=== PATIENT | female | born 1955 | race Caucasian/White ===

== ENCOUNTER 2018-02-01 11:56 | Day surgery (SDC) | payer MEDICAID ==
[2018-01-27 15:35] LABS: BASOPHILS % (AUTO) 0.3 % (0-1); EOSINOPHILS # (AUTO) 0.2 X10'3 (0-0.9); EOSINOPHILS % (AUTO) 2.2 % (0-6); HEMATOCRIT 37.7 % (35.0-45.0); HEMOGLOBIN 13.1 g/dl (12.0-16.0); LYMPHOCYTES # (AUTO) 1.6 X10'3 (1.1-4.8); LYMPHOCYTES % (AUTO) 22.1 % (21-51); MEAN CORPUSCULAR HEMOGLOBIN 32.2 PG (27.0-31.0); MEAN CORPUSCULAR HGB CONC 34.7 % (33.0-36.5); MEAN CORPUSCULAR VOLUME 92.7 FL (78-98); MEAN PLATELET VOLUME 8.4 FL (7.4-10.4); MONOCYTES # (AUTO) 0.6 X10'3 (0-0.9); MONOCYTES % (AUTO) 7.5 % (2-12); NEUTROPHILS # (AUTO) 5.1 X10'3 (1.8-7.7); NEUTROPHILS % (AUTO) 67.9 % (42-75); PLATELET COUNT 207 X10'3 (140-440); RED BLOOD COUNT 4.06 X10'6 (4.20-5.60); RED CELL DISTRIBUTION WIDTH 12.9 % (11.5-14.5); WHITE BLOOD COUNT 7.4 X10'3 (4.5-11.0)
[2018-01-27 15:46] LABS: PARTIAL THROMBOPLASTIN TIME 27 SECONDS (22-32); PROTHROMBIN TIME 9.9 SECONDS (9.0-12.0)
[2018-01-27 15:48] LABS: ALBUMIN 3.6 G/DL (3.4-5.0); ANION GAP 9 (8-16); BLOOD UREA NITROGEN 21 MG/DL (7-18); BUN/CREATININE RATIO 21.2 (6.6-38.0); CALCIUM 8.7 MG/DL (8.5-10.1); CHLORIDE 108 MMOL/L (99-107); CREATININE 0.99 MG/DL (0.40-0.90); GLUCOSE 96 MG/DL (70-104); POTASSIUM 3.8 MMOL/L (3.5-5.1); SODIUM 145 MMOL/L (135-145); TOTAL CARBON DIOXIDE 28.2 MMOL/L (24-32); eGFR 57 ML/MIN
[~2018-02-01] VITALS: Ht 154.9 cm; Wt 70.6 kg
[2018-02-01] VITALS (11 sets, daily range): BP systolic 108–152; BP diastolic 66–95
[2018-02-01] MEDS ORDERED: LIDOcaine 1% (10mg/ml) 2ml vial ONE (12:16)
[2018-02-01] MEDS ORDERED: LORazepam 0.5 MG tablet PO ONE (12:20)
[2018-02-01] MEDS ORDERED: diphenhydrAMINE 25mg capsule PO ONE (12:20)
[2018-02-01] MEDS ORDERED: normal saline 1000ml 1,000 ML IV SCH (12:20)
[2018-02-01] MEDS ORDERED: IBUP200C74 PO (12:33)
[2018-02-01] MEDS ORDERED: ATOR20TA66 PO (12:33)
[2018-02-01] MEDS ORDERED: AMLO5TAB PO (12:33)
[2018-02-01] MEDS ORDERED: LEVO75TA PO (12:33)
[2018-02-01] MEDS ORDERED: ASPI81TA52 PO (12:33)
[2018-02-01] MEDS ORDERED: fentaNYL/PF 50MCG/1 ML 2ML syringe ONE (14:29)
[2018-02-01] MEDS ORDERED: midazolam 2 mg/2 ml injection ONE (14:30)
[2018-02-01] MEDS ORDERED: LIDOcaine 1%/PF (10mg/ml) 5ml vial ONE ×2 (14:30→14:31)
[2018-02-01] MEDS ORDERED: iohexol 350MG/ML 100ml bottle IV ONE (14:30)
[2018-02-01] MEDS ORDERED: iohexol 350 MG/ML 50ML vial IV ONE (15:20)
[2018-02-01] MEDS ORDERED: proCHLORperazine 10 MG/2 ml inj IV PRN (18:55)
[2018-02-01] MEDS ORDERED: HYDROcodone/acetaminophen 10/325mg tab PO PRN (18:55)
[2018-02-01] MEDS ORDERED: ondansetron/PF 4mg/2ml inj IV PRN (18:55)
[2018-02-01] MEDS ORDERED: OXAZEpam 15mg capsule PO PRN (18:55)
[2018-02-01] MEDS ORDERED: HYDROcodone/acetaminophen 5mg/325mg tablet PO PRN (18:55)
[2018-02-01] MEDS ORDERED: nitroGLYCERIN 0.4mg SUBLingual tab SL PRN (19:00)
== END 2018-02-01 20:00 | disposition home or self-care (01) ==
LOC: SSTAY O 11:56
PROVIDERS: ATTEND Internal Medicine Interventional Cardiology
DX: I25.110 Atherosclerotic heart disease of native coronary artery with unstable angina pectoris (principal); I10 Essential (primary) hypertension; E03.9 Hypothyroidism, unspecified; B19.20 Unspecified viral hepatitis C without hepatic coma; Z79.82 Long term (current) use of aspirin; Z79.1 Long term (current) use of non-steroidal anti-inflammatories (NSAID); Z95.1 Presence of aortocoronary bypass graft; Z72.89 Other problems related to lifestyle; Z98.890 Other specified postprocedural states; Z79.899 Other long term (current) drug therapy
CPT/HCPCS: 36415; 80048; 85025; 85610; 85730; 93005; 93458; 99152; A6257; C1769; J1644; J2001; J2250; J3010; J3490; J7030; Q0163; Q9967; A4620

== ENCOUNTER 2018-03-03 05:32 | Inpatient (IN) | payer MEDICAID ==
[2018-03-01 14:46] LABS: ABG BASE EXCESS 0.7 mmol/L (-2.0-3.0); ABG HCO3 24.7 mmol/L (22.0-26.0); ABG OXYGEN SATURATION 96.4 % (95-98); ABG PCO2 (T) 37.6 mmHg (32.0-45.0); ABG PH (T) 7.436 (7.350-7.450); ABG PO2 (T) 83.2 mmHg (83-108); ALLEN'S TEST Positive; FCOHb 0.5 % (0.5-1.5); FMetHb 0.1 % (0.3-1.12); FO2Hb 95.8 % (94-100); TOTAL HEMOGLOBIN 13.2 G/dl (12.0-16.0)
[2018-03-01 15:09] LABS: BASOPHILS % (AUTO) 0.4 % (0-1); EOSINOPHILS # (AUTO) 0.1 X10'3 (0-0.9); EOSINOPHILS % (AUTO) 2.3 % (0-6); LYMPHOCYTES # (AUTO) 1.7 X10'3 (1.1-4.8); LYMPHOCYTES % (AUTO) 31.8 % (21-51); MEAN CORPUSCULAR HEMOGLOBIN 31.5 PG (27.0-31.0); MEAN CORPUSCULAR HGB CONC 33.9 % (33.0-36.5); MEAN CORPUSCULAR VOLUME 92.9 FL (78-98); MEAN PLATELET VOLUME 8.9 FL (7.4-10.4); MONOCYTES # (AUTO) 0.5 X10'3 (0-0.9); MONOCYTES % (AUTO) 8.5 % (2-12); NEUTROPHILS # (AUTO) 3.1 X10'3 (1.8-7.7); PRE OP HEMATOCRIT 38.2 % (35.0-45.0); PRE OP PLATELET COUNT 178 X10'3 (140-440); RED BLOOD COUNT 4.11 X10'6 (4.20-5.60); RED CELL DISTRIBUTION WIDTH 13.2 % (11.5-14.5)
[2018-03-01 15:19] LABS: CLARITY,URINE CLEAR (Clear); COLOR,URINE STRAW (Yellow); GLUCOSE, URINE NEGATIVE (Neg); KETONES,URINE NEGATIVE (Neg); LEUKOCYTE ESTERASE ,URINE NEGATIVE (Neg); NITRITES, URINE NEGATIVE (Neg); OCCULT BLOOD,URINE SMALL (Neg); PROTEIN,URINE NEGATIVE (Neg); UA COLLECTION TYPE CLN CATCH MIDSTREAM; UROBILINOGEN,URINE 0.2 E.U/dL (0.2-1.0)
[2018-03-01 15:19] LABS: PRE OP INR 0.9 INR; PRE OP PROTIME 9.8 SECONDS (9.0-12.0)
[2018-03-01 15:27] LABS: BACTERIA,URINE FEW /HPF (Neg); RBC,URINE 0-2 /HPF (0-2); SQUAMOUS EPITHELIAL CELL,UR FEW /LPF (FEW); WBC,URINE 0-4 /HPF (0-4)
[2018-03-01 15:33] LABS: ALBUMIN 3.7 G/DL (3.4-5.0); ALBUMIN/GLOBULIN RATIO 1.1 (1.1-1.5); ALKALINE PHOSPHATASE 108 IU/L (46-116); BLOOD UREA NITROGEN 16 MG/DL (7-18); CALCIUM 8.8 MG/DL (8.5-10.1); CHLORIDE 106 MMOL/L (99-107); PRE OP ALT 38 U/L (30-65); PRE OP ANION GAP 8 (8-16); PRE OP AST 25 U/L (10-37); PRE OP BILIRUB, TOTAL 0.4 MG/DL (0.0-1.0); PRE OP GLUCOSE 127 MG/DL (70-104); PRE OP POTASSIUM 4.6 MMOL/L (3.4-5.1); PRE OP SODIUM 144 MMOL/L (135-145); TOTAL CARBON DIOXIDE 29.8 MMOL/L (24-32); TOTAL PROTEIN 7.2 G/DL (6.4-8.2); eGFR 56 ML/MIN
[2018-03-01 15:39] LABS: HEMOGLOBIN A1C 5.6 % (4.5-6.2)
[2018-03-03] VITALS (24 sets, daily range): BP systolic 92–148; BP diastolic 49–86
[~2018-03-03] VITALS: Ht 154.9 cm; Wt 70.1 kg
[~2018-03-03 05:32] MED LIST: AMLO5TAB PO; ASPI81TA52 PO; ATOR20TA66 PO; BISO1TAB4 PO; CETI-102 PO; Cefazolin 2GM/100ML NS IVPB IV ONE; IBUP200C74 PO; LEVO75TA PO; LORazepam 2 mg/ml vial IV PRN; NITR0.4T51 SL; TRAZ-143 PO; UBID100C16 PO; VANCOMYCIN INJ 1000 MG in NORMAL SALINE 250ml IV.SOLN IV ONE; dextrose 50%-water 50ml dispensing syringe IV PRN; famotidine 20mg tablet PO ONE; insulin Lispro (HumaLOG) vial - multi-dose SQ SCH; ringers solution, lacted 1,000 ML IV SCH
[2018-03-03] MEDS ORDERED: LIDOcaine 1% (10mg/ml) 2ml vial ONE (05:57)
[2018-03-03] MEDS ORDERED: mupirocin 2% nasal ointment 1gm UD NS ONE (06:10)
[2018-03-03] MEDS ORDERED: papaverine 30 mg/ml 2ml inj. IA ONE (06:49)
[2018-03-03] MEDS ORDERED: SUFENTANIL CITRATE 50 MCG/ML 2ml ampule IV ONE (06:50)
[2018-03-03] MEDS ORDERED: MIDAZolam 1mg/ml 10ml vial ONE (06:50)
[2018-03-03] MEDS ORDERED: sevoflurane 250ml liquid IH ONE (06:55)
[2018-03-03] MEDS ORDERED: DOPamine/D5W 400mg/250ml bag IV ONE (06:55)
[2018-03-03] MEDS ORDERED: protamine sulf. 10mg/ml inj. IV ONE (06:55)
[2018-03-03] MEDS ORDERED: nitroGLYCERIN in D5W 50mg/250ml (Tridil) infusion IV ONE (06:55)
[2018-03-03 07:40] LABS: ABG BASE EXCESS -1.5 mmol/L (-2.0-3.0); ABG HCO3 22.6 mmol/L (22.0-26.0); ABG OXYGEN SATURATION 99.5 % (95-98); ABG PCO2 35.5 mmHg (35.0-45.0); ABG PH 7.421 (7.350-7.450); ABG PO2 420.6 mmHg (60.0-100.0); CL (ABG) 106 mmol/L (99-107); FCOHb 0.3 % (0.5-1.5); FMetHb 0.4 % (0.3-1.12); FO2Hb 98.8 % (94-100); GLUCOSE (ABG) 90 mg/dl (70-105); IONIZED CA (ABG) 1.11 mmol/L (1.03-1.32); NA (ABG) 136 mmol/L (135-145); TOTAL HEMOGLOBIN 11.3 G/dl (12.0-16.0)
[2018-03-03] MEDS ORDERED: aminocaproic acid 250 MG/1 ML inj. ONE (08:00)
[2018-03-03] MEDS ORDERED: calcium chloride 100 MG/1 ML inj IV ONE (08:00)
[2018-03-03] MEDS ORDERED: heparin 10,000 units/1 ML INJ ONE (08:00)
[2018-03-03 09:06] LABS: ABG BASE EXCESS VENOUS -0.3 mmol/L; ABG HCO3 VENOUS 25.6 mmol/L; ABG PCO2 VENOUS 47.3 mmHg; ABG PO2 VENOUS 58.8 mmHg; CL (ABG) 107 mmol/L (99-107); FCOHb VENOUS 0.2 %; FHHb VENOUS 11.2 %; FMetHb VENOUS 0.6 %; GLUCOSE (ABG) 115 mg/dl (70-105); IONIZED CA (ABG) 1.11 mmol/L (1.03-1.32); K (ABG) 4.1 mmol/L (3.3-5.1); NA (ABG) 136 mmol/L (135-145); TOTAL HEMOGLOBIN 11.8 G/dl (12.0-16.0)
[2018-03-03] MEDS ORDERED: ipratropium/albuterol 3ml nebule IH PRN (09:10)
[2018-03-03] MEDS ORDERED: DOPamine 400mg/D5W 250ml 250 ML IV PRN (09:26)
[2018-03-03] MEDS ORDERED: nitroGLYCERIN-Tridil 50MG/D5W 250 ML IV PRN (09:26)
[2018-03-03] MEDS ORDERED: niCARDipine/sod cl 20mg/200ml 200 ML IV PRN (09:26)
[2018-03-03] MEDS ORDERED: metoclopramide 5 mg/ml inj IV PRN (09:30)
[2018-03-03] MEDS ORDERED: magnesium hydroxide 30ml (MOM) UD suspension PO PRN (09:30)
[2018-03-03] MEDS ORDERED: Neutra Phos packet PO PRN (09:30)
[2018-03-03] MEDS ORDERED: normal saline 250ml IV soln 250 ML IV PRN (09:30)
[2018-03-03] MEDS ORDERED: sodium phosphate inj. 30 MMOL in dextrose 5%-water 250 ML IV PRN (09:30)
[2018-03-03] MEDS ORDERED: magnesium 4gm in 100ml NS 100 ML IV PRN (09:30)
[2018-03-03] MEDS ORDERED: acetaminophen 325mg tablet PO PRN (09:30)
[2018-03-03] MEDS ORDERED: insulin regular, human inj. 100 UNITS in normal saline 100ml IV soln 100 ML IV SCH ×2 (09:30)
[2018-03-03] MEDS ORDERED: ondansetron/PF 4mg/2ml inj IV PRN (09:30)
[2018-03-03] MEDS ORDERED: dextrose 50%-water 50ml dispensing syringe IV PRN (09:30)
[2018-03-03] MEDS ORDERED: HYDROcodone/acetaminophen 10/325mg tab PO PRN (09:30)
[2018-03-03] MEDS ORDERED: potassium Cl 20mEq/100mL bag 100 ML IV PRN (09:30)
[2018-03-03] MEDS ORDERED: sodium phosphate inj. 15 MMOL in dextrose 5%-water 150 ML IV PRN (09:30)
[2018-03-03 10:01] LABS: ABG BASE EXCESS -2.5 mmol/L (-2.0-3.0); ABG HCO3 20.8 mmol/L (22.0-26.0); ABG OXYGEN SATURATION 98.8 % (95-98); ABG PCO2 (T) 30.5 mmHg (32.0-45.0); ABG PH (T) 7.452 (7.350-7.450); ABG PO2 (T) 297.4 mmHg (83-108); FCOHb 0.2 % (0.5-1.5); FMetHb 0.2 % (0.3-1.12); FO2Hb 98.4 % (94-100); MINUTE VOLUME 7 L/min; PEEP 5 cm H2O; RESPIRATORY RATE 12 b/min; RESPIRATORY RATE (OBSERVED) 12 b/min; TOTAL HEMOGLOBIN 9.4 G/dl (12.0-16.0)
[2018-03-03] MEDS ORDERED: phenylephrine 10mg/ml inj IV ONE (10:01)
[2018-03-03] MEDS ORDERED: etomidate 2mg/ml inj. ONE (10:01)
[2018-03-03] MEDS ORDERED: LIDOcaine 2% (20mg/ml) 5ml vial ONE (10:01)
[2018-03-03] MEDS ORDERED: rocuronium 10mg/ml inj IV ONE (10:01)
[2018-03-03] MEDS ORDERED: epiNEPHrine 1 mg/ml inj ONE (10:01)
[2018-03-03] MEDS ORDERED: albumin (Human) 5% 250ml 250 ML IV ONE (10:02)
[2018-03-03 10:05] LABS: BASOPHILS % (AUTO) 0.3 % (0-1); EOSINOPHILS # (AUTO) 0.1 X10'3 (0-0.9); HEMATOCRIT 27.5 % (35.0-45.0); HEMOGLOBIN 9.3 g/dl (12.0-16.0); LYMPHOCYTES % (AUTO) 28.4 % (21-51); MEAN CORPUSCULAR HEMOGLOBIN 31.3 PG (27.0-31.0); MEAN CORPUSCULAR HGB CONC 33.9 % (33.0-36.5); MEAN CORPUSCULAR VOLUME 92.5 FL (78-98); MEAN PLATELET VOLUME 8.2 FL (7.4-10.4); MONOCYTES # (AUTO) 0.1 X10'3 (0-0.9); NEUTROPHILS # (AUTO) 2.3 X10'3 (1.8-7.7); NEUTROPHILS % (AUTO) 67.3 % (42-75); PLATELET COUNT 101 X10'3 (140-440); RED BLOOD COUNT 2.98 X10'6 (4.20-5.60); RED CELL DISTRIBUTION WIDTH 13.1 % (11.5-14.5); WHITE BLOOD COUNT 3.4 X10'3 (4.5-11.0)
[2018-03-03 10:15] LABS: INR 1.1 INR; PARTIAL THROMBOPLASTIN TIME 36 SECONDS (22-32); PROTHROMBIN TIME 11.4 SECONDS (9.0-12.0)
[2018-03-03 10:33] LABS: ALANINE AMINOTRANSFERASE 22 U/L (12-78); ALBUMIN 2.6 G/DL (3.4-5.0); ALBUMIN/GLOBULIN RATIO 1.2 (1.1-1.5); ALKALINE PHOSPHATASE 58 IU/L (46-116); ANION GAP 6 (8-16); ASPARTATE AMINO TRANSFERASE 21 U/L (10-37); BILIRUBIN,TOTAL 0.5 MG/DL (0.1-1.0); BLOOD UREA NITROGEN 15 MG/DL (7-18); BUN/CREATININE RATIO 18.5 (6.6-38.0); CALCIUM 7.5 MG/DL (8.5-10.1); CHLORIDE 110 MMOL/L (99-107); CREATININE 0.81 MG/DL (0.40-0.90); GLUCOSE 107 MG/DL (70-104); MAGNESIUM 1.6 MG/DL (1.5-2.4); PHOSPHORUS 3.1 MG/DL (2.3-4.5); POTASSIUM 4.1 MMOL/L (3.5-5.1); SODIUM 140 MMOL/L (135-145); TOTAL PROTEIN 4.7 G/DL (6.4-8.2); eGFR 71 ML/MIN
[2018-03-03] MEDS: sodium chloride 0.45% 1,000 ML IV SCH (10:50)
[2018-03-03] MEDS: albumin (Human) 5% 250ml 250 ML IV PRN ×2 (10:50→14:33)
[2018-03-03] MEDS: insulin regular, human 100 UNITS in normal saline 100ml IV soln 99 ML IV SCH ×6 (11:21→13:27)
[2018-03-03] MEDS: morphine 4 MG/ML inj SYRINge IV PRN ×3 (11:39→18:26)
[2018-03-03] MEDS: insulin Lispro (HumaLOG) vial - multi-dose SQ SCH ×2 (11:50→18:00)
[2018-03-03 13:11] LABS: ACT @ 1.70 U 343 SEC (193-297); ACT @ 2.84 U 481 SEC (260-420); BASELINE ACT 157 SEC (101-148); PATIENT WEIGHT 71.0k KG
[2018-03-03 13:11] LABS: ACTIVATED CLOTTING TIME 135 SEC (101-148)
[2018-03-03] MEDS: potassium Cl 20mEq/100mL bag 100 ML IV PRN ×3 (14:48→19:49)
[2018-03-03] MEDS: magnesium 2GM in 50ml NS 50 ML IV PRN (14:49)
[2018-03-03] MEDS: ceFAZolin 1GM/D5W- ADD-VANTAGE 50 ML IV SCH (16:12)
[2018-03-03 17:57] LABS: BASOPHILS % (AUTO) 0.2 % (0-1); EOSINOPHILS % (AUTO) 0.5 % (0-6); HEMATOCRIT 23.3 % (35.0-45.0); HEMOGLOBIN 7.9 g/dl (12.0-16.0); LYMPHOCYTES # (AUTO) 0.5 X10'3 (1.1-4.8); MEAN CORPUSCULAR HEMOGLOBIN 31.7 PG (27.0-31.0); MEAN CORPUSCULAR VOLUME 93.3 FL (78-98); MONOCYTES # (AUTO) 0.6 X10'3 (0-0.9); MONOCYTES % (AUTO) 6.1 % (2-12); NEUTROPHILS # (AUTO) 8.3 X10'3 (1.8-7.7); NEUTROPHILS % (AUTO) 88.2 % (42-75); PLATELET COUNT 127 X10'3 (140-440); RED BLOOD COUNT 2.49 X10'6 (4.20-5.60); RED CELL DISTRIBUTION WIDTH 12.8 % (11.5-14.5); WHITE BLOOD COUNT 9.4 X10'3 (4.5-11.0)
[2018-03-03 18:07] LABS: ANION GAP 11 (8-16); BLOOD UREA NITROGEN 16 MG/DL (7-18); CHLORIDE 106 MMOL/L (99-107); GLUCOSE 153 MG/DL (70-104); POTASSIUM 3.8 MMOL/L (3.5-5.1); SODIUM 139 MMOL/L (135-145); TOTAL CARBON DIOXIDE 22.4 MMOL/L (24-32)
[2018-03-03 18:08] LABS: ALBUMIN 3.1 G/DL (3.4-5.0); BUN/CREATININE RATIO 22.9 (6.6-38.0); CALCIUM 7.6 MG/DL (8.5-10.1); eGFR 85 ML/MIN
[2018-03-03 18:55] LABS: MAGNESIUM 3.5 MG/DL (1.5-2.4)
[2018-03-03] MEDS: docusate sod 100mg capsule PO SCH (20:00)
[2018-03-03] MEDS: vancomycin/NS 1 GM ADD-VANTAGE 250 ML IV SCH (20:58)
[2018-03-03] MEDS: mupirocin 2% nasal ointment 1gm UD NS SCH (20:59)
[2018-03-04] VITALS (28 sets, daily range): BP systolic 84–129; BP diastolic 51–83
[2018-03-04] MEDS: ceFAZolin 1GM/D5W- ADD-VANTAGE 50 ML IV SCH ×3 (00:18→15:38)
[2018-03-04 00:21] LABS: ABG BASE EXCESS -2.1 mmol/L (-2.0-3.0); ABG HCO3 22.2 mmol/L (22.0-26.0); ABG OXYGEN SATURATION 95.9 % (95-98); ABG PCO2 (T) 36.8 mmHg (32.0-45.0); ABG PH (T) 7.402 (7.350-7.450); ABG PO2 (T) 89.5 mmHg (83-108); FMetHb 0.3 % (0.3-1.12); FO2Hb 95.6 % (94-100); MINUTE VOLUME 6 L/min; PATIENT TEMPERATURE 37.7; PEEP 5 cm H2O; RESPIRATORY RATE (OBSERVED) 13 b/min; TOTAL HEMOGLOBIN 7.2 G/dl (12.0-16.0)
[2018-03-04] MEDS: morphine 4 MG/ML inj SYRINge IV PRN ×5 (00:34→20:37)
[2018-03-04] MEDS: insulin regular, human 100 UNITS in normal saline 100ml IV soln 99 ML IV SCH ×4 (01:06→08:07)
[2018-03-04 03:15] LABS: BASOPHILS % (AUTO) 0.1 % (0-1); EOSINOPHILS # (AUTO) 0.1 X10'3 (0-0.9); LYMPHOCYTES # (AUTO) 0.4 X10'3 (1.1-4.8); LYMPHOCYTES % (AUTO) 7.6 % (21-51); MEAN CORPUSCULAR HEMOGLOBIN 31.8 PG (27.0-31.0); MEAN CORPUSCULAR HGB CONC 34.4 % (33.0-36.5); MEAN CORPUSCULAR VOLUME 92.4 FL (78-98); MEAN PLATELET VOLUME 8.4 FL (7.4-10.4); MONOCYTES # (AUTO) 0.4 X10'3 (0-0.9); MONOCYTES % (AUTO) 6.8 % (2-12); NEUTROPHILS % (AUTO) 84.5 % (42-75); PLATELET COUNT 143 X10'3 (140-440); RED BLOOD COUNT 2.21 X10'6 (4.20-5.60); RED CELL DISTRIBUTION WIDTH 13.1 % (11.5-14.5); WHITE BLOOD COUNT 5.9 X10'3 (4.5-11.0)
[2018-03-04 03:18] LABS: HEMATOCRIT 20.4 % (35.0-45.0)
[2018-03-04 03:27] LABS: PARTIAL THROMBOPLASTIN TIME 26 SECONDS (22-32)
[2018-03-04 03:36] LABS: ALANINE AMINOTRANSFERASE 26 U/L (12-78); ALBUMIN 3.1 G/DL (3.4-5.0); ALBUMIN/GLOBULIN RATIO 1.2 (1.1-1.5); ALKALINE PHOSPHATASE 50 IU/L (46-116); ANION GAP 6 (8-16); ASPARTATE AMINO TRANSFERASE 24 U/L (10-37); BLOOD UREA NITROGEN 13 MG/DL (7-18); BUN/CREATININE RATIO 16.7 (6.6-38.0); CALCIUM 7.4 MG/DL (8.5-10.1); CHLORIDE 107 MMOL/L (99-107); CREATININE 0.78 MG/DL (0.40-0.90); GLUCOSE 135 MG/DL (70-104); MAGNESIUM 2.4 MG/DL (1.5-2.4); PHOSPHORUS 3.8 MG/DL (2.3-4.5); POTASSIUM 4.3 MMOL/L (3.5-5.1); SODIUM 138 MMOL/L (135-145); TOTAL CARBON DIOXIDE 25.3 MMOL/L (24-32); TOTAL PROTEIN 5.6 G/DL (6.4-8.2); eGFR 75 ML/MIN
[2018-03-04] MEDS: metoprolol tartrate 12.5mg (1/2 tablet) PO SCH ×3 (07:31→21:11)
[2018-03-04] MEDS: levoTHYROXINE 75mcg tablet PO SCH (07:31)
[2018-03-04] MEDS: magnesium 2GM in 50ml NS 50 ML IV PRN (07:35)
[2018-03-04] MEDS: potassium Cl 20mEq/100mL bag 100 ML IV PRN ×2 (07:36→15:45)
[2018-03-04] MEDS: vancomycin/NS 1 GM ADD-VANTAGE 250 ML IV SCH ×2 (08:08→20:37)
[2018-03-04] MEDS: insulin Lispro (HumaLOG) vial - multi-dose SQ SCH ×3 (09:00→18:00)
[2018-03-04] MEDS: mupirocin 2% nasal ointment 1gm UD NS SCH ×2 (09:01→20:37)
[2018-03-04] MEDS: docusate sod 100mg capsule PO SCH ×2 (09:01→20:37)
[2018-03-04] MEDS: aspirin 325mg tablet, delayed-release (Ecotrin) PO SCH (09:01)
[2018-03-04] MEDS: atorvastatin 10mg tablet PO SCH (09:01)
[2018-03-04] MEDS: pantoprazole 40mg Tablet.DR PO SCH (09:01)
[2018-03-04] MEDS: cetirizine 10mg tablet PO SCH (09:01)
[2018-03-04] MEDS: HYDROcodone/acetaminophen 10/325mg tab PO PRN ×2 (09:02→15:40)
[2018-03-04 11:17] LABS: BASOPHILS % (AUTO) 0.1 % (0-1); EOSINOPHILS # (AUTO) 0.1 X10'3 (0-0.9); EOSINOPHILS % (AUTO) 1.1 % (0-6); HEMOGLOBIN 7.2 g/dl (12.0-16.0); LYMPHOCYTES # (AUTO) 0.7 X10'3 (1.1-4.8); LYMPHOCYTES % (AUTO) 9.5 % (21-51); MEAN CORPUSCULAR HEMOGLOBIN 31.7 PG (27.0-31.0); MEAN CORPUSCULAR HGB CONC 34.5 % (33.0-36.5); MEAN PLATELET VOLUME 8.1 FL (7.4-10.4); MONOCYTES # (AUTO) 0.7 X10'3 (0-0.9); MONOCYTES % (AUTO) 8.8 % (2-12); NEUTROPHILS # (AUTO) 6.1 X10'3 (1.8-7.7); NEUTROPHILS % (AUTO) 80.5 % (42-75); PLATELET COUNT 142 X10'3 (140-440); RED BLOOD COUNT 2.27 X10'6 (4.20-5.60); RED CELL DISTRIBUTION WIDTH 13.1 % (11.5-14.5); WHITE BLOOD COUNT 7.6 X10'3 (4.5-11.0)
[2018-03-04 11:23] LABS: HEMATOCRIT 20.9 % (35.0-45.0)
[2018-03-04 11:26] LABS: MAGNESIUM 2.7 MG/DL (1.5-2.4); POTASSIUM 4.4 MMOL/L (3.5-5.1)
[2018-03-04] MEDS: lactobacillus rhamnosus 10,000 MMU CELLS/CAPSULE PO SCH (20:37)
[2018-03-04 22:16] LABS: BASOPHILS % (AUTO) 0.1 % (0-1); EOSINOPHILS # (AUTO) 0.1 X10'3 (0-0.9); EOSINOPHILS % (AUTO) 1.5 % (0-6); LYMPHOCYTES # (AUTO) 1.3 X10'3 (1.1-4.8); LYMPHOCYTES % (AUTO) 14.8 % (21-51); MEAN CORPUSCULAR HEMOGLOBIN 31.8 PG (27.0-31.0); MEAN CORPUSCULAR VOLUME 93.5 FL (78-98); MEAN PLATELET VOLUME 8.3 FL (7.4-10.4); MONOCYTES # (AUTO) 1.1 X10'3 (0-0.9); MONOCYTES % (AUTO) 13.2 % (2-12); NEUTROPHILS % (AUTO) 70.4 % (42-75); PLATELET COUNT 125 X10'3 (140-440); RED BLOOD COUNT 2.05 X10'6 (4.20-5.60); RED CELL DISTRIBUTION WIDTH 13.3 % (11.5-14.5); WHITE BLOOD COUNT 8.5 X10'3 (4.5-11.0)
[2018-03-04 22:28] LABS: HEMOGLOBIN 6.5 g/dl (12.0-16.0)
[2018-03-04 22:29] LABS: HEMATOCRIT 19.2 % (35.0-45.0)
[2018-03-04 22:30] LABS: ALANINE AMINOTRANSFERASE 19 U/L (12-78); ALBUMIN 2.7 G/DL (3.4-5.0); ALBUMIN/GLOBULIN RATIO 0.9 (1.1-1.5); ALKALINE PHOSPHATASE 50 IU/L (46-116); ANION GAP 5 (8-16); ASPARTATE AMINO TRANSFERASE 23 U/L (10-37); BLOOD UREA NITROGEN 12 MG/DL (7-18); BUN/CREATININE RATIO 14.6 (6.6-38.0); CALCIUM 7.8 MG/DL (8.5-10.1); CHLORIDE 102 MMOL/L (99-107); CREATININE 0.82 MG/DL (0.40-0.90); GLUCOSE 121 MG/DL (70-104); MAGNESIUM 2.2 MG/DL (1.5-2.4); PHOSPHORUS 2.6 MG/DL (2.3-4.5); POTASSIUM 4.3 MMOL/L (3.5-5.1); SODIUM 133 MMOL/L (135-145); TOTAL CARBON DIOXIDE 25.9 MMOL/L (24-32); TOTAL PROTEIN 5.6 G/DL (6.4-8.2); eGFR 70 ML/MIN
[2018-03-05] VITALS (26 sets, daily range): BP systolic 79–136; BP diastolic 50–75
[2018-03-05] MEDS: ceFAZolin 1GM/D5W- ADD-VANTAGE 50 ML IV SCH
[2018-03-05 03:56] LABS: BASOPHILS % (AUTO) 0.1 % (0-1); EOSINOPHILS % (AUTO) 0.3 % (0-6); HEMATOCRIT 26.8 % (35.0-45.0); HEMOGLOBIN 9.2 g/dl (12.0-16.0); LYMPHOCYTES # (AUTO) 1.5 X10'3 (1.1-4.8); LYMPHOCYTES % (AUTO) 17.6 % (21-51); MEAN CORPUSCULAR HEMOGLOBIN 30.3 PG (27.0-31.0); MEAN CORPUSCULAR HGB CONC 34.2 % (33.0-36.5); MEAN CORPUSCULAR VOLUME 88.6 FL (78-98); MEAN PLATELET VOLUME 8.2 FL (7.4-10.4); MONOCYTES # (AUTO) 1.1 X10'3 (0-0.9); MONOCYTES % (AUTO) 12.8 % (2-12); NEUTROPHILS # (AUTO) 5.9 X10'3 (1.8-7.7); NEUTROPHILS % (AUTO) 69.2 % (42-75); PLATELET COUNT 113 X10'3 (140-440); RED BLOOD COUNT 3.03 X10'6 (4.20-5.60); RED CELL DISTRIBUTION WIDTH 15.8 % (11.5-14.5); WHITE BLOOD COUNT 8.5 X10'3 (4.5-11.0)
[2018-03-05 04:08] LABS: ALBUMIN 2.7 G/DL (3.4-5.0); ANION GAP 6 (8-16); BLOOD UREA NITROGEN 13 MG/DL (7-18); BUN/CREATININE RATIO 16.5 (6.6-38.0); CALCIUM 8.1 MG/DL (8.5-10.1); CHLORIDE 103 MMOL/L (99-107); CREATININE 0.79 MG/DL (0.40-0.90); GLUCOSE 119 MG/DL (70-104); MAGNESIUM 2.2 MG/DL (1.5-2.4); PHOSPHORUS 2.7 MG/DL (2.3-4.5); POTASSIUM 4.5 MMOL/L (3.5-5.1); SODIUM 135 MMOL/L (135-145); eGFR 74 ML/MIN
[2018-03-05] MEDS: magnesium 2GM in 50ml NS 50 ML IV PRN (04:27)
[2018-03-05] MEDS: morphine 4 MG/ML inj SYRINge IV PRN ×2 (05:03→08:21)
[2018-03-05] MEDS: aspirin 325mg tablet, delayed-release (Ecotrin) PO SCH (08:20)
[2018-03-05] MEDS: levoTHYROXINE 75mcg tablet PO SCH (08:20)
[2018-03-05] MEDS: pantoprazole 40mg Tablet.DR PO SCH (08:20)
[2018-03-05] MEDS: mupirocin 2% nasal ointment 1gm UD NS SCH ×2 (08:20→19:31)
[2018-03-05] MEDS: cetirizine 10mg tablet PO SCH (08:20)
[2018-03-05] MEDS: lactobacillus rhamnosus 10,000 MMU CELLS/CAPSULE PO SCH ×2 (08:20→19:31)
[2018-03-05] MEDS: docusate sod 100mg capsule PO SCH ×2 (08:20→19:31)
[2018-03-05] MEDS: atorvastatin 10mg tablet PO SCH (08:20)
[2018-03-05] MEDS ORDERED: furosemide 40mg/4ml inj IV ONE (08:35)
[2018-03-05] MEDS: metoprolol tartrate 12.5mg (1/2 tablet) PO SCH ×2 (08:49→19:32)
[2018-03-05] MEDS: insulin Lispro (HumaLOG) vial - multi-dose SQ SCH ×3 (09:00→18:00)
[2018-03-05] MEDS: HYDROcodone/acetaminophen 10/325mg tab PO PRN (14:06)
[2018-03-05] MEDS: ketorolac tromethamine 15mg/ml inj. IV SCH ×2 (14:06→19:31)
[2018-03-05] MEDS: sodium chloride 0.45% 1,000 ML IV SCH (16:57)
[2018-03-06] VITALS (23 sets, daily range): BP systolic 76–135; BP diastolic 52–87
[2018-03-06] MEDS: insulin regular, human 100 UNITS in normal saline 100ml IV soln 99 ML IV SCH ×2 (00:10)
[2018-03-06] MEDS: ketorolac tromethamine 15mg/ml inj. IV SCH ×4 (02:00→20:57)
[2018-03-06] MEDS: HYDROcodone/acetaminophen 10/325mg tab PO PRN ×2 (05:36→19:36)
[2018-03-06 06:04] LABS: BASOPHILS % (AUTO) 0.1 % (0-1); EOSINOPHILS # (AUTO) 0.2 X10'3 (0-0.9); EOSINOPHILS % (AUTO) 2.4 % (0-6); HEMATOCRIT 25.8 % (35.0-45.0); HEMOGLOBIN 8.8 g/dl (12.0-16.0); LYMPHOCYTES % (AUTO) 13.9 % (21-51); MEAN CORPUSCULAR HEMOGLOBIN 30.6 PG (27.0-31.0); MEAN CORPUSCULAR HGB CONC 34.2 % (33.0-36.5); MEAN CORPUSCULAR VOLUME 89.5 FL (78-98); MEAN PLATELET VOLUME 8.9 FL (7.4-10.4); MONOCYTES # (AUTO) 0.8 X10'3 (0-0.9); MONOCYTES % (AUTO) 10.1 % (2-12); NEUTROPHILS # (AUTO) 5.5 X10'3 (1.8-7.7); NEUTROPHILS % (AUTO) 73.5 % (42-75); PLATELET COUNT 115 X10'3 (140-440); RED BLOOD COUNT 2.88 X10'6 (4.20-5.60); RED CELL DISTRIBUTION WIDTH 16.1 % (11.5-14.5); WHITE BLOOD COUNT 7.5 X10'3 (4.5-11.0)
[2018-03-06] MEDS: insulin Lispro (HumaLOG) vial - multi-dose SQ SCH ×2 (06:48→13:00)
[2018-03-06 06:52] LABS: ALBUMIN 2.4 G/DL (3.4-5.0); ANION GAP 7 (8-16); BLOOD UREA NITROGEN 17 MG/DL (7-18); BUN/CREATININE RATIO 19.1 (6.6-38.0); CALCIUM 8.2 MG/DL (8.5-10.1); CHLORIDE 105 MMOL/L (99-107); CREATININE 0.89 MG/DL (0.40-0.90); GLUCOSE 95 MG/DL (70-104); MAGNESIUM 2.3 MG/DL (1.5-2.4); PHOSPHORUS 2.3 MG/DL (2.3-4.5); POTASSIUM 4.2 MMOL/L (3.5-5.1); SODIUM 138 MMOL/L (135-145); TOTAL CARBON DIOXIDE 25.9 MMOL/L (24-32); eGFR 64 ML/MIN
[2018-03-06] MEDS: potassium Cl 20mEq/100mL bag 100 ML IV PRN (07:58)
[2018-03-06] MEDS: LACTOSE-FREE FOOD 237ML (BOOST) PO SCH ×3 (08:00→19:36)
[2018-03-06] MEDS ORDERED: aspirin 325mg tablet, delayed-release (Ecotrin) PO SCH (08:00)
[2018-03-06] MEDS: cetirizine 10mg tablet PO SCH (08:12)
[2018-03-06] MEDS: docusate sod 100mg capsule PO SCH ×2 (08:13→20:00)
[2018-03-06] MEDS: levoTHYROXINE 75mcg tablet PO SCH (08:13)
[2018-03-06] MEDS: lactobacillus rhamnosus 10,000 MMU CELLS/CAPSULE PO SCH ×2 (08:13→20:57)
[2018-03-06] MEDS: pantoprazole 40mg Tablet.DR PO SCH (08:13)
[2018-03-06] MEDS: atorvastatin 10mg tablet PO SCH (08:13)
[2018-03-06] MEDS: mupirocin 2% nasal ointment 1gm UD NS SCH ×2 (08:13→20:57)
[2018-03-06] MEDS ORDERED: magnesium citrate 296ml oral solution PO ONE (08:50)
[2018-03-06] MEDS: magnesium 2GM in 50ml NS 50 ML IV PRN (09:27)
[2018-03-06] MEDS: metoprolol tartrate 12.5mg (1/2 tablet) PO SCH ×2 (09:27→20:57)
[2018-03-07] VITALS (15 sets, daily range): BP systolic 81–128; BP diastolic 57–93
[2018-03-07] MEDS: ketorolac tromethamine 15mg/ml inj. IV SCH (02:14)
[2018-03-07 03:33] LABS: BASOPHILS % (AUTO) 0.3 % (0-1); EOSINOPHILS # (AUTO) 0.2 X10'3 (0-0.9); EOSINOPHILS % (AUTO) 3.2 % (0-6); HEMATOCRIT 27.5 % (35.0-45.0); HEMOGLOBIN 9.3 g/dl (12.0-16.0); LYMPHOCYTES # (AUTO) 1.6 X10'3 (1.1-4.8); LYMPHOCYTES % (AUTO) 23.4 % (21-51); MEAN CORPUSCULAR HEMOGLOBIN 30.5 PG (27.0-31.0); MEAN CORPUSCULAR HGB CONC 33.7 % (33.0-36.5); MEAN CORPUSCULAR VOLUME 90.5 FL (78-98); MEAN PLATELET VOLUME 8.7 FL (7.4-10.4); MONOCYTES # (AUTO) 0.6 X10'3 (0-0.9); MONOCYTES % (AUTO) 9.7 % (2-12); NEUTROPHILS # (AUTO) 4.3 X10'3 (1.8-7.7); NEUTROPHILS % (AUTO) 63.4 % (42-75); PLATELET COUNT 170 X10'3 (140-440); RED BLOOD COUNT 3.04 X10'6 (4.20-5.60); RED CELL DISTRIBUTION WIDTH 16.2 % (11.5-14.5); WHITE BLOOD COUNT 6.7 X10'3 (4.5-11.0)
[2018-03-07 03:42] LABS: ALBUMIN 2.5 G/DL (3.4-5.0); ANION GAP 6 (8-16); BLOOD UREA NITROGEN 21 MG/DL (7-18); BUN/CREATININE RATIO 23.3 (6.6-38.0); CALCIUM 8.3 MG/DL (8.5-10.1); CHLORIDE 105 MMOL/L (99-107); GLUCOSE 96 MG/DL (70-104); MAGNESIUM 2.7 MG/DL (1.5-2.4); PHOSPHORUS 3.2 MG/DL (2.3-4.5); POTASSIUM 4.6 MMOL/L (3.5-5.1); SODIUM 139 MMOL/L (135-145); eGFR 63 ML/MIN
[2018-03-07] MEDS ORDERED: ibuprofen 200mg tablet PO PRN (07:15)
[2018-03-07] MEDS ORDERED: magnesium Cl slow-release 64mg tablet PO PRN (07:20)
[2018-03-07] MEDS ORDERED: magnesium 2GM in 50ml NS 50 ML IV PRN (07:20)
[2018-03-07] MEDS ORDERED: potassium Cl 40MEQ/NS 500ml 500 ML IV PRN ×2 (07:20)
[2018-03-07] MEDS ORDERED: magnesium 4gm in 100ml NS 100 ML IV PRN (07:20)
[2018-03-07] MEDS ORDERED: potassium Cl 20 mEq SR tablet PO PRN ×2 (07:20)
[2018-03-07] MEDS: K and/or MAG REPLACEMENT MC SCH (08:00)
[2018-03-07] MEDS: clopidogrel 75mg tablet PO SCH (08:00)
[2018-03-07] MEDS: LACTOSE-FREE FOOD 237ML (BOOST) PO SCH ×3 (08:00→18:00)
[2018-03-07] MEDS: cetirizine 10mg tablet PO SCH (08:00)
[2018-03-07] MEDS: pantoprazole 40mg Tablet.DR PO SCH (08:00)
[2018-03-07] MEDS: levoTHYROXINE 75mcg tablet PO SCH (08:00)
[2018-03-07] MEDS: docusate sod 100mg capsule PO SCH ×2 (08:00→21:05)
[2018-03-07] MEDS: atorvastatin 10mg tablet PO SCH (08:00)
[2018-03-07] MEDS: HYDROchlorothiazide 25mg tablet PO SCH (08:00)
[2018-03-07] MEDS: atenolol 50mg tablet PO SCH (08:00)
[2018-03-07] MEDS: lactobacillus rhamnosus 10,000 MMU CELLS/CAPSULE PO SCH ×2 (08:00→21:06)
[2018-03-07] MEDS: aspirin 81mg tablet.DR PO SCH (08:00)
[2018-03-07] MEDS: potassium Cl 20 mEq SR tablet PO SCH ×2 (08:00→21:06)
[2018-03-07] MEDS: magnesium Cl slow-release 64mg tablet PO SCH ×2 (08:00→21:06)
[2018-03-07] MEDS: HYDROcodone/acetaminophen 10/325mg tab PO PRN (21:12)
[2018-03-08 03:00] VITALS: BP 114/69
[2018-03-08 06:09] LABS: BASOPHILS % (AUTO) 0.4 % (0-1); EOSINOPHILS # (AUTO) 0.3 X10'3 (0-0.9); EOSINOPHILS % (AUTO) 4.5 % (0-6); HEMATOCRIT 27.6 % (35.0-45.0); HEMOGLOBIN 9.4 g/dl (12.0-16.0); LYMPHOCYTES # (AUTO) 1.3 X10'3 (1.1-4.8); LYMPHOCYTES % (AUTO) 21.3 % (21-51); MEAN CORPUSCULAR HEMOGLOBIN 30.3 PG (27.0-31.0); MEAN CORPUSCULAR HGB CONC 33.9 % (33.0-36.5); MEAN CORPUSCULAR VOLUME 89.6 FL (78-98); MEAN PLATELET VOLUME 7.9 FL (7.4-10.4); MONOCYTES # (AUTO) 0.7 X10'3 (0-0.9); MONOCYTES % (AUTO) 11.5 % (2-12); NEUTROPHILS # (AUTO) 3.7 X10'3 (1.8-7.7); NEUTROPHILS % (AUTO) 62.3 % (42-75); PLATELET COUNT 183 X10'3 (140-440); RED BLOOD COUNT 3.08 X10'6 (4.20-5.60); RED CELL DISTRIBUTION WIDTH 15.6 % (11.5-14.5); WHITE BLOOD COUNT 5.9 X10'3 (4.5-11.0)
[2018-03-08 06:29] LABS: ALBUMIN 2.4 G/DL (3.4-5.0); ANION GAP 7 (8-16); BLOOD UREA NITROGEN 17 MG/DL (7-18); BUN/CREATININE RATIO 18.9 (6.6-38.0); CALCIUM 8.4 MG/DL (8.5-10.1); CHLORIDE 105 MMOL/L (99-107); GLUCOSE 99 MG/DL (70-104); MAGNESIUM 2.3 MG/DL (1.5-2.4); POTASSIUM 4.6 MMOL/L (3.5-5.1); SODIUM 139 MMOL/L (135-145); TOTAL CARBON DIOXIDE 27.1 MMOL/L (24-32); eGFR 63 ML/MIN
[2018-03-08 06:30] VITALS: BP 122/82
[2018-03-08] MEDS: docusate sod 100mg capsule PO SCH (07:53)
[2018-03-08] MEDS: clopidogrel 75mg tablet PO SCH (07:54)
[2018-03-08] MEDS: pantoprazole 40mg Tablet.DR PO SCH (07:54)
[2018-03-08] MEDS: levoTHYROXINE 75mcg tablet PO SCH (07:54)
[2018-03-08] MEDS: lactobacillus rhamnosus 10,000 MMU CELLS/CAPSULE PO SCH (07:55)
[2018-03-08] MEDS: cetirizine 10mg tablet PO SCH (07:55)
[2018-03-08] MEDS: atorvastatin 10mg tablet PO SCH (07:56)
[2018-03-08] MEDS: atenolol 50mg tablet PO SCH (07:56)
[2018-03-08] MEDS: aspirin 81mg tablet.DR PO SCH (07:57)
[2018-03-08] MEDS: HYDROchlorothiazide 25mg tablet PO SCH (07:58)
[2018-03-08] MEDS: potassium Cl 20 mEq SR tablet PO SCH (08:00)
[2018-03-08] MEDS: magnesium Cl slow-release 64mg tablet PO SCH (08:00)
[2018-03-08] MEDS: K and/or MAG REPLACEMENT MC SCH (08:00)
[2018-03-08] MEDS: LACTOSE-FREE FOOD 237ML (BOOST) PO SCH (08:26)
[2018-03-08] MEDS ORDERED: HYDR-3972 PO (09:15)
[2018-03-08] MEDS ORDERED: CLOP75TA35 PO (09:15)
[2018-03-08] MEDS ORDERED: COL100C PO (09:15)
[2018-03-08 11:00] VITALS: BP 102/54
== END 2018-03-08 12:25 | disposition home or self-care (01) | DRG 166 ==
LOC: PAS IN 05:32 → EDSTATUS 07:30 → ICU 2S 09:17 → PCU 3S 03-07 10:10
PROVIDERS: ADMIT Thoracic Surgery (Cardiothoracic Vascular Surgery); ATTEND Thoracic Surgery (Cardiothoracic Vascular Surgery)
PROC: B24BZZ4 Ultrasonography of Heart with Aorta, Transesophageal (ICD-10-PCS; 2018-03-03)
PROC: 30233M1 Transfusion of Nonautologous Plasma Cryoprecipitate into Peripheral Vein, Percutaneous Approach (ICD-10-PCS; 2018-03-03)
PROC: 30233N1 Transfusion of Nonautologous Red Blood Cells into Peripheral Vein, Percutaneous Approach (ICD-10-PCS; 2018-03-03)
PROC: 30233R1 Transfusion of Nonautologous Platelets into Peripheral Vein, Percutaneous Approach (ICD-10-PCS; 2018-03-03)
PROC: 02100Z9 Bypass Coronary Artery, One Artery from Left Internal Mammary, Open Approach (ICD-10-PCS; principal; 2018-03-03 06:55)
DX: I25.118 Atherosclerotic heart disease of native coronary artery with other forms of angina pectoris (principal); I25.82 Chronic total occlusion of coronary artery; E03.9 Hypothyroidism, unspecified; I10 Essential (primary) hypertension; Z80.9 Family history of malignant neoplasm, unspecified; Z79.899 Other long term (current) drug therapy; Z79.01 Long term (current) use of anticoagulants; Z79.82 Long term (current) use of aspirin
CPT/HCPCS: 0232T; 36415; 36600; 71045; 71046; 80048; 80053; 81001; 82330; 82435; 82803; 82947; 82948; 83036; 83735; 84100; 84132; 84295; 85018; 85025; 85347; 85384; 85610; 85730; 86885; 86900; 86901; 86920; 87070; 93005; 93312; 93325; 93880; 93971; 94002; 94003; 94010; 94667; 94760; 97110; 97116; 97161; 97530; A6213; A6255; A6257; A6258; A6402; A6449; A7000; A7048; C1751; J0171; J0690; J1265; J1644; J1815; J1885; J1940; J2001; J2060; J2250; J2270; J2370; J2440; J2720; J3370; J3475; J3480; J3490; J7030; J7120; P9012; P9016; P9035; P9045